=== PATIENT | male | born 1970 | race Caucasian/White ===

== ENCOUNTER → 2017-07-14 | Outpatient (CLI) | payer OTHER ==
[2017-07-14 15:53] LABS: C-REACTIVE PROTEIN, QUANT 0.04 mg/dL (0.02-0.49); FERRITIN 541.4 ng/mL (26-388)
[2017-07-16 13:07] LABS: TESTOSTERONE FREE DIRECT 6.7 pg/mL (6.8-21.5)
[2017-07-19 08:06] LABS: COMPLEMENT C3 97 mg/dL (82-167); COMPLEMENT C4 25 mg/dL (14-44); INTERMYOFIBRILLAR AB Negative (Neg:<1:20); MITOCHONDRIAL (M2) AB 11.8 Units (0.0-20.0); PARIETAL CELL AB 5.5 Units (0.0-20.0); RA LATEX TURBIDITY <10.0 IU/mL (0.0-13.9); SARCOLEMMA AB Negative (Neg:<1:20); STRIATION AB Negative (Neg:<1:40); THYROID PEROXIDASE (TPO) AB 8 IU/mL (0-34)
== END | disposition home or self-care (01) ==
LOC: CFH 14:37
PROVIDERS: ATTEND Internal Medicine
DX: Z00.01 Encounter for general adult medical examination with abnormal findings (principal); Z13.220 Encounter for screening for lipoid disorders; Z12.11 Encounter for screening for malignant neoplasm of colon; Z12.5 Encounter for screening for malignant neoplasm of prostate; E78.5 Hyperlipidemia, unspecified; K21.9 Gastro-esophageal reflux disease without esophagitis; E03.9 Hypothyroidism, unspecified; M79.672 Pain in left foot; M25.562 Pain in left knee; M54.5 Low back pain; M54.2 Cervicalgia; M79.1 Myalgia; I83.90 Asymptomatic varicose veins of unspecified lower extremity; R53.83 Other fatigue
CPT/HCPCS: 36415; 81374; 82550; 82728; 83516; 83540; 83550; 84402; 84403; 84466; 85651; 86038; 86140; 86160; 86200; 86225; 86235; 86255; 86256; 86376; 86431

== ENCOUNTER → 2017-07-29 | Outpatient (CLI) | payer OTHER ==
[2017-07-29 16:41] LABS: HEMATOCRIT 48.2 % (39.2-51.8); HEMOGLOBIN 16.6 g/dL (13.7-18.0); WHITE BLOOD COUNT 5.8 x10^3/uL (3.4-10)
[2017-07-29 16:53] LABS: BLOOD UREA NITROGEN 13 mg/dL (7-18)
[2017-07-29 17:02] LABS: ASPARTATE AMINO TRANSFERASE 25 U/L (15-37); TOTAL IRON BINDING CAPACITY 260 mcg/dL (250-450); TRANSFERRIN 239 mg/dL (200-360)
== END | disposition home or self-care (01) ==
LOC: LAB 16:17
PROVIDERS: ATTEND Physician Assistant
DX: Z00.01 Encounter for general adult medical examination with abnormal findings (principal); Z13.220 Encounter for screening for lipoid disorders; Z12.11 Encounter for screening for malignant neoplasm of colon; Z12.5 Encounter for screening for malignant neoplasm of prostate; E78.5 Hyperlipidemia, unspecified; K21.9 Gastro-esophageal reflux disease without esophagitis; E03.9 Hypothyroidism, unspecified; M79.672 Pain in left foot; M25.562 Pain in left knee; M54.5 Low back pain; M54.2 Cervicalgia; M79.1 Myalgia; I83.90 Asymptomatic varicose veins of unspecified lower extremity; R53.83 Other fatigue; R79.9 Abnormal finding of blood chemistry, unspecified
CPT/HCPCS: 36415; 80053; 81256; 82728; 83540; 83550; 84153; 84443; 84466; 85025; G0103